=== PATIENT | male | born 1960 ===

== ENCOUNTER 2025-01-17 06:00 | Outpatient (CLI) | payer OTHER ==
[~2025-01-17] VITALS: Ht 172.7 cm; Wt 97.5 kg
[2025-01-17] MEDS ORDERED: KEPPRA500 MG (10:23)
[2025-01-17] MEDS ORDERED: AMLODIPINE-OLM1 EAC3 PO (10:23)
[2025-01-17] MEDS ORDERED: COZAAR50 MG PO (10:24)
[2025-01-17] MEDS ORDERED: ECOTRIN81 MG PO (10:24)
[2025-01-17 10:25] VITALS: BP 147/84
[2025-01-17 11:35] LABS: HEMATOCRIT 49.8 % (39.0-48.0); HEMOGLOBIN 16.8 g/dL (13-16.00); MEAN CELL VOLUME 83.8 fL (80.0-100.00); MEAN CORPUSCULAR HEMOGLOBIN 28.2 pg (27.00-32.0); MEAN CORPUSCULAR HGB CONC 33.6 g/dl (32.0-36.0); PLATELET COUNT 154 K/uL (150-450); RED BLOOD COUNT 5.95 M/uL (4.00-6.00); RED CELL DISTRIBUTION WIDTH 13.3 % (11.5-14.5)
[2025-01-17 11:37] LABS: PH,URINE 5.5 (5.0-8.0); URINE APPEARANCE Clear; URINE BILIRRUBIN Negative (NEGATIVE); URINE BLOOD Negative; URINE COLOR Yellow; URINE GLUCOSE Negative (NEGATIVE); URINE KETONE Negative (NEGATIVE); URINE LEUKOCYTE Trace; URINE NITRATE Negative; URINE PROTEIN Negative (NEGATIVE); URINE UROBILINOGEN 0.2 E.U./dl
[2025-01-17 11:42] LABS: URINE BACTERIA 6.1 uL (0.0-1933); URINE WBC 3.3 uL (0.0-23.2)
[2025-01-17 11:46] LABS: URINE CAST 0.14 uL (0.0-1.40); URINE EPITHELIAL CELLS 0.9 uL (0.0-38.8); URINE RBC 0.1 uL (0.0-20.8)
[2025-01-17 11:53] LABS: INR 1.03; PARTIAL THROMBOPLASTIN TIME 29.1 SECONDS (22.0-34.0); PROTHROMBIN TIME 11.2 SECONDS (9.0-11.5)
[2025-01-17 12:06] LABS: ALBUMIN 4.5 gm/dL (3.4-5.0); BILIRUBIN TOTAL 0.6 mg/dL (0.3-1.2); CALCIUM 9.7 mg/dL (8.5-10.1); CREATININE SERUM 0.95 mg/dL (0.70-1.30); GFR 79.81; GLOBULINA 2.9 G/DL (2.4-3.5); POTASSIUM 4.45 mEq/L (3.5-5.1); TOTAL PROTEIN 7.4 gm/dL (6.4-8.2)
== END 2025-01-17 06:01 | disposition home or self-care (01) ==
LOC: RAD 06:00 → ADM 09:45 → EDSTATUS 01-22 09:45 → CIR.AMB 01-22 09:45
PROVIDERS: ATTEND Colon & Rectal Surgery
DX: K64.2 Third degree hemorrhoids (principal); K92.1 Melena; I10 Essential (primary) hypertension